=== PATIENT | female | born 1995 | race Caucasian/White ===

== ENCOUNTER 2019-07-17 23:39 | Emergency (ER) | payer BC ==
[~2019-07-17] VITALS: Ht 170.2 cm; Wt 63.5 kg
--- NOTE | 2019-07-17 23:39 | NUR ---
ED Nurse Note: pt [place] in by [place] c/c etoh intoxication, according to ems report, pt's date called 911 because pt drank too much tequila and started yelling and demonstrated aggressive behavior. pt currently combative such as kicking and hitting, crying, yelling, screaming. security contacted for safety purposes. will cont monitor. ermd aware of pt's condition.
[2019-07-17 23:40] VITALS: BP 108/78
[2019-07-17 23:55] VITALS: BP 128/86
[2019-07-18] MEDS ORDERED: Haloperidol 5mg/ml Inj IM ONE
--- NOTE | 2019-07-18 | NUR ---
ED Nurse Note: spoke with pt's mother per pt's req, notified pt's mother that she is currently intoxicated and is at the hospital.
[2019-07-18 00:10] VITALS: BP 108/86
--- NOTE | 2019-07-18 00:18 | NUR ---
Patien t being very noisy, moved to ortho room. 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
[2019-07-18 00:25] VITALS: BP 96/80
--- NOTE | 2019-07-18 00:35 | NUR ---
ED Nurse Note: Made contact with patient's mom, Sari and informed her about patient's wellbeing. Number [phone]
[2019-07-18 00:40] VITALS: BP 96/70
--- NOTE | 2019-07-18 00:40 | NUR ---
ED Nurse Note: noted pt sleeping, ermd notified.
[2019-07-18 00:42] LABS: BASOPHILS % (AUTO) 0.7 % (0.0-2.0); EOSINOPHILS % (AUTO) 0.3 % (0.0-3.0); HEMATOCRIT 42.8 % (37.0-47.0); HEMOGLOBIN 14.4 G/DL (12.0-16.0); LYMPHOCYTES % (AUTO) 22.4 % (20.0-45.0); MEAN CORPUSCULAR VOLUME 96 FL (80-99); MONOCYTES % (AUTO) 5.7 % (1.0-10.0); NEUTROPHILS % (AUTO) 70.8 % (45.0-75.0); PLATELET COUNT 353 K/UL (150-450); RED BLOOD COUNT 4.46 M/UL (4.20-5.40); RED CELL DISTRIBUTION WIDTH 11.8 % (11.6-14.8); WHITE BLOOD COUNT 15.2 K/UL (4.8-10.8)
[2019-07-18 00:57] LABS: ANION GAP 7 mmol/L (5-15); BLOOD UREA NITROGEN 8 mg/dL (7-18); CALCIUM 9.2 MG/DL (8.5-10.1); CARBON DIOXIDE 24 MMOL/L (21-32); CHLORIDE 104 MMOL/L (98-107); CREATININE 0.6 MG/DL (0.55-1.30); POTASSIUM 3.5 MMOL/L (3.5-5.1); SODIUM 135 MMOL/L (136-145)
[2019-07-18 01:05] LABS: ALANINE AMINOTRANSFERASE 32 U/L (12-78); ALBUMIN 4.2 G/DL (3.4-5.0); ALKALINE PHOSPHATASE 84 U/L (46-116); ASPARTATE AMINO TRANSFERASE 35 U/L (15-37); BILIRUBIN,TOTAL 0.3 MG/DL (0.2-1.0)
--- NOTE | 2019-07-18 01:36 | Emergency Room Report ---
History of Present Illness General Chief Complaint: Alcohol Intoxication Source: Patient Present Illness HPI Patient was visiting her sister. She is in college in [place]. Apparently she was drinking alcohol and became less responsive. The sister did not hear any allegations of intent to harm herself but EMS was summoned. Paramedics transferred the patient here. Her Accu-Chek was normal. There is no allegations of any other ingestions. The patient is not answering most questions at this time. According to the sister there are no major medical problems. Apparently the patient is not in a heterosexual relationship and there is no thought of . Allergies: Coded Allergies: No Known Allergies (Unverified , 07/17/19) Patient History Limited by: medical condition Past Medical History: see triage record Social History: Reports: smoking, alcohol use, drug use Social History Narrative Parents are in [place]. 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 [employer] Last Menstrual Period: n/a Now: No Reviewed Nursing Documentation: PMH: Agreed; PSxH: Agreed Nursing Documentation-PMH Past Medical History: No Stated History Review of Systems All Other Systems: limited Physical Exam Vital Signs Date Time Temp Pulse Resp B/P (MAP) Pulse Ox O2 Delivery O2 Flow Rate FiO2 07/17/19 23:35 98.2 97 18 111/78 (89) 98 Room Air Sp02 EP Interpretation: reviewed, normal General Appearance: lethargic, other - Slurred Head: normocephalic, atraumatic Eyes: bilateral eye PERRL, bilateral eye abnormal EOM, bilateral eye Scleral Injection ENT: moist mucus membranes Neck: supple, no bony tend Respiratory: lungs clear, normal breath sounds Cardiovascular #1: regular rate, rhythm Cardiovascular #2: 2+ radial (R) Gastrointestinal: non tender, soft, scaphoid Musculoskeletal: digits/nails normal, normal range of motion, non-tender Neurologic: responsive, motor strength/tone normal, sensory intact, no Babinski , abnormal gait, nystagmus Psychiatric: other - Labile and threatening staff will not answer regarding suicidal or homicidal ideation Skin: other - Plethoric face Procedures Critical Care Time Critical Care Time Total Critical Care Time: 30 min bedside evaluation and treatment excludes procedures (EKG). Reason for critical care: Lethargy, restraints and sedation, danger to self and others, repeated evaluations Possible complications: hypotension, shock, arrhythmias, metabolic acidosis, end organ damage, respiratory failure, aspiration, injury to self and others. Interventions: Restraints, sedation, repeat evaluations and discussion with family Course: Patient presented with lethargy after alleged alcohol ingestion. Patient became violent and refusing care necessitating assessment of ability to give informed consent, restraints and sedation. Repeated evaluations performed after sedation. Discussion with family including mother and sister. Repeat evaluation when patient sober. Discussion of alcohol treatment with patient and sister. Consultations: nursing staff, EMS, family, security Performed by: Dr. Rivera Tolerated well condition at discharge improved Medical Decision Making Medical: Alcohol Abuse, Substance Abuse Reaction to Intervention: Escalated Behavior Restraint Reassesment I, Rob Rivera MD, have personally evaluated this patient. Laboratory tests have been reviewed and addressed accordingly. The patient is deemed to present a danger to themselves and/or others. This is based on the exam, history provided by EMS and observed behavior. Attempts for non-invasive measures have been considered and/or attempted, however, have been futile. It is in the best interest of the nursing staff, the patient, and others involved in this patient's care that behavioral restraints be applied. Patient evaluation reveals the following: patient with nystagmus and ataxia and demonstrates poor understanding of risk to self. Diagnostic Impression: Primary Impression: Acute alcoholic intoxication Qualified Codes: F10.929 - Alcohol use, unspecified with intoxication, unspecified ER Course Patient is presents with alleged alcohol ingestion lethargy ataxia. Evaluation will include chest x-ray and labs. The patient will receive IV hydration. The patient is unsteady on her feet and demonstrates poor judgment at this time. Patient is placed on a director of cardiac cath lab. Patient is violent and refusing treatment. She demonstrates inability to give informed consent at this time. Restraints are ordered and sedation. Patient sedated and restraints removed. Labs significant for blood alcohol of 333 and mild leukocytosis. Urine tox positive for THC. Discussed with mother in [place]. States has problem with alcohol but no known psychiatric problems. Patient now completely awake and ambulatory without ataxia. Patient denies suicidal or homicidal ideation. I discussed the issue her alcohol ingestion and leading here that it is a problem that needs to be addressed. She disagrees. Her sister is hearing and states that she will take the patient to an Alcoholics Anonymous meeting. She also will watch over her sister. The patient agreed for me to discuss findings with the mother. She was called. Patient improved and stable for outpatient observation and treatment. Laboratory Tests Test 9/8/19 00:13 07/18/19 02:15 White Blood Count 15.2 K/UL (4.8-10.8) H Red Blood Count 4.46 M/UL (4.20-5.40) Hemoglobin 14.4 G/DL (12.0-16.0) Hematocrit 42.8 % (37.0-47.0) Mean Corpuscular Volume 96 FL (80-99) Mean Corpuscular Hemoglobin 32.2 PG (27.0-31.0) H Mean Corpuscular Hemoglobin Concent 33.5 G/DL (32.0-36.0) Red Cell Distribution Width 11.8 % (11.6-14.8) Platelet Count 353 K/UL (150-450) Mean Platelet Volume 7.0 FL (6.5-10.1) Neutrophils (%) (Auto) 70.8 % (45.0-75.0) Lymphocytes (%) (Auto) 22.4 % (20.0-45.0) Monocytes (%) (Auto) 5.7 % (1.0-10.0) Eosinophils (%) (Auto) 0.3 % (0.0-3.0) Basophils (%) (Auto) 0.7 % (0.0-2.0) Sodium Level 135 MMOL/L (136-145) L Potassium Level 3.5 MMOL/L (3.5-5.1) Chloride Level 104 MMOL/L (98-107) Carbon Dioxide Level 24 MMOL/L (21-32) Anion Gap 7 mmol/L (5-15) Blood Urea Nitrogen 8 mg/dL (7-18) Creatinine 0.6 MG/DL (0.55-1.30) Estimate Glomerular Filtration Rate > 60 mL/min (>60) Glucose Level 123 MG/DL (74-106) H Calcium Level 9.2 MG/DL (8.5-10.1) Total Bilirubin 0.3 MG/DL (0.2-1.0) Aspartate Amino Transferase (AST) 35 U/L (15-37) Alanine Aminotransferase (ALT) 32 U/L (12-78) Alkaline Phosphatase 84 U/L (46-116) Total Protein 8.4 G/DL (6.4-8.2) H Albumin 4.2 G/DL (3.4-5.0) Globulin 4.2 g/dL Albumin/Globulin Ratio 1.0 (1.0-2.7) Salicylates Level 1.5 ug/mL (2.8-20) L Acetaminophen Level < 2 MCG/ML (10-30) L Serum Alcohol 333 mg/dL Urine Color Pale yellow Urine Appearance Clear Urine pH 6 (4.5-8.0) Urine Specific [place] 1.015 (1.005-1.035) Urine Protein Negative (NEGATIVE) Urine Glucose (UA) Negative (NEGATIVE) Urine Ketones Negative (NEGATIVE) Urine Blood Negative (NEGATIVE) Urine Nitrite Negative (NEGATIVE) Urine Bilirubin Negative (NEGATIVE) Urine Urobilinogen Normal MG/DL (0.0-1.0) Urine Leukocyte Esterase Negative (NEGATIVE) Urine HCG, Qualitative Negative (NEGATIVE) Urine Opiates Screen Negative (NEGATIVE) Urine Barbiturates Screen Negative (NEGATIVE) Phencyclidine (PCP) Screen Negative (NEGATIVE) Urine Amphetamines Screen Negative (NEGATIVE) Urine Benzodiazepines Screen Negative (NEGATIVE) Urine Cocaine Screen Negative (NEGATIVE) Urine Marijuana (THC) Screen Positive (NEGATIVE) H Rhythm Strip Diag. Results Rhythm: NSR, no PVC's, no ectopy Chest X-Ray Diagnostic Results Chest X-Ray Diagnostic Results : Chest X-Ray Ordered: Yes # of Views/Limited/Complete: 1 View Indication: Other EP Interpretation: Yes Interpretation: no consolidation, no effusion, no pneumothorax Impression: No acute disease Electronically Signed by: Electronically signed by Rob Rivera MD Last Vital Signs Date Time Temp Pulse Resp B/P (MAP) Pulse Ox O2 Delivery O2 Flow Rate FiO2 07/18/19 00:40 75 14 100 Room Air 07/17/19 23:40 98.2 108/78 Status: improved Disposition: HOME, SELF-CARE Condition: Improved Referrals: NOT CHOSEN IPA/,REFERRING (PCP) Rob Rivera MD Jul 18, 2019 01:36
--- NOTE | 2019-07-18 02:30 | NUR ---
ED Nurse Note: Pt laying in bed, eyes closed, non-labored breathing, arousable to name. Offered water and toiletting. Will continue to monitor. Sister at bedside
[2019-07-18 02:37] LABS: APPEARANCE,URINE CLEAR; BILIRUBIN, URINE NEGATIVE (NEGATIVE); COLOR,URINE PALE YELLOW; GLUCOSE, URINE (UA) NEGATIVE (NEGATIVE); KETONES,URINE NEGATIVE (NEGATIVE); LEUKOCYTE ESTERASE ,URINE NEGATIVE (NEGATIVE); NITRITE,URINE NEGATIVE (NEGATIVE); PH,URINE 6 (4.5-8.0); PROTEIN,URINE NEGATIVE (NEGATIVE); UROBILINOGEN,URINE NORMAL MG/DL (0.0-1.0)
--- NOTE | 2019-07-18 03:30 | Diagnostic Imaging Report ---
EXAM: XR Chest, 1 View CLINICAL HISTORY: ALOC TECHNIQUE: Frontal view of the chest. COMPARISON: No relevant prior studies available. FINDINGS: Lungs: Unremarkable. No consolidation. Pleural space: Unremarkable. No pneumothorax. Heart: Unremarkable. No cardiomegaly. Mediastinum: Unremarkable. Bones/joints: Unremarkable. IMPRESSION: Normal chest x-ray.
[2019-07-18 04:15] VITALS: BP 96/70
--- NOTE | 2019-07-18 04:15 | NUR ---
ER DISCHARGE NOTE: Patient is cleared to be discharged per ERMD, pt is aox4, on room air, with stable vital signs. pt was given dc and prescription instructions, pt was able to verbalize understanding, pt id band and iv site removed without complications. pt is able to ambulate with steady gait. pt took all belongings. Sister accompanied pt.
== END 2019-07-18 04:15 | disposition home or self-care (01) ==
LOC: EDBD 23:39 → EMR 07-18 00:35
DX: F10.929 Alcohol use, unspecified with intoxication, unspecified (principal); Z78.1 Physical restraint status; R46.89 Other symptoms and signs involving appearance and behavior; F17.200 Nicotine dependence, unspecified, uncomplicated; F19.10 Other psychoactive substance abuse, uncomplicated; R40.4 Transient alteration of awareness; Y90.8 Blood alcohol level of 240 mg/100 ml or more
CPT/HCPCS: 36415; 71045; 80053; 80307; 81003; 81025; 85025; 96360; 96361; 96372; 99291; G0480; J1630; 80329